=== PATIENT | female | born 1965 | race Caucasian/White ===

== ENCOUNTER 2016-10-16 20:04 | Emergency (ER) | payer OTHER ==
[~2016-10-16] VITALS: Ht 162.6 cm; Wt 78.2 kg
[~2016-10-16 20:04] MED LIST: KETO5DRO68 OP; OXYM30SP18 NS
[2016-10-16 20:13] VITALS: BP 107/5; PULSE 87; RESP 18; O2SAT 99
[2016-10-16 21:20] LABS: BASOPHILS % (AUTO) 0.9 % (0-3); EOSINOPHILS % (AUTO) 2.1 % (0-5); MONOCYTES % (AUTO) 5.8 % (4-12); Mean Corpuscular Hemoglobin 29.4 pg (27.0-35.0); Mean Corpuscular Volume 90.9 fL (81-100); NEUTROPHILS % (AUTO) 46.4 % (40-74); Platelet Count 286 bil/L (150-400)
--- NOTE | 2016-10-16 21:58 | ED.REPORT ---
HPI-Back Pain 40 and Over Date of Service Oct 16, 2016 ED Provider: Raul Martin DO The patient is a 51 year old female who presents to the ED with severe low back pain onset today. She is anxious and in distress at the ED. She jumps when her back is touched. She drove herself to the ED. She has successfully had Vicodin in the past although she lists an allergy to acetaminophen. She denies fever, chest pain, abdominal pain,and vomiting. Nursing Notes Stated Complaint: LEFT BACK PAIN Chief Complaint: Back Pain or Injury Nursing Notes Reviewed: Yes Allergies: Coded Allergies: NSAIDS (Non-Steroidal Anti-Inflamma (Verified Allergy, Severe, Rash, Itching,SOB, 10/16/16) Penicillins (Verified Allergy, Severe, Rash,Itching,SOB, 10/16/16) acetaminophen (Verified Allergy, Intermediate, eye lids swelling, 10/16/16) Scheduled Ketotifen Fumarate (Zaditor) 5 Ml Drops 1 DROP OP Q12 Scheduled PRN Oxymetazoline HCl (Nasal [place] Sinus) 30 Ml [place] 30 ML NS BID PRN PRN For Congestion General Time Seen by MD: 21:57 Chief Complaint Back pain Hx Obtained From: Patient Arrived By: Walk-in Sudden in Onset?: Yes Onset Occurred: Yesterday Symptom Duration: Since onset Quality: Painful Severity: Current: Severe Recent Healthcare: No recent doctor visit, No recent hospitalization Similar Sx Previous: No Past Medical History Past Medical History Denies Past Surgical History denies Family History Noncontributory Smoking History Unknown if Ever Smoker Social History Other Social History: Local resident Ambulatory Status Independent Review of Systems Constitutional: Denies: Fever Respiratory: Denies: Shortness of breath Cardiovascular: Denies: Chest pain GI: Denies: Abdominal pain, Vomiting Musculoskeletal: Reports: Back pain Complete sys rev & neg: except as marked. Physical Exam Physical Exam Notes: Initial Vital Signs Vital Signs (First) Date Time Temp Pulse Resp B/P Pulse Ox O2 Delivery O2 Flow Rate FiO2 10/16/16 20:13 36.1 87 18 107/5 99 Room Air Initial VS: Reviewed Head / Eyes: Atraumatic, Normocephalic, PERRL ENT: Mucous membranes moist Extremities: Vascular intact, Neuro intact, No swelling Skin: Warm, Dry General/Constitutional: Awake, Alert Distress / Hydration: Positive: Distress moderate (due to pain) Respiratory / Chest: Atraumatic, Breath sounds NL, Breath sounds = bilat Cardiovascular: Heart rate NL, Regular rhythm, Heart sounds NL Abdomen: Atraumatic, Soft, Non-tender Flank / Spine / Paraspinal: Positive: Thoracic spine tender... tender left CVA Neurologic: Oriented X3, Speech NL, No motor deficits, No sensory deficits, Reflexes equal bilat, Memory NL Interpretation & Diagnostics Lab Results Interpretation Result Diagram: 10/16/16 21010/16/16 210 Test 10/16/16 21:03 10/16/16 21:55 White Blood Count 6.7th/mm3 (3.8-10.1) Red Blood Count 4.28mil/mm3 (3.90-5.20) Hemoglobin 12.6g/dL (12.0-15.6) Hematocrit 38.9% (35.0-46.0) Mean Corpuscular Volume 90.9fL (81-100) Mean Corpuscular Hemoglobin 29.4pg (27.0-35.0) Mean Corpuscular Hemoglobin Concent 32.4% (32.0-37.0) Red Cell Distribution Width 13.1% (12.3-15.4) Platelet Count 286bil/L (150-400) Neutrophils (%) (Auto) 46.4% (40-74) Lymphocytes (%) (Auto) 44.7% (14-46) Monocytes (%) (Auto) 5.8% (4-12) Eosinophils (%) (Auto) 2.1% (0-5) Basophils (%) (Auto) 0.9% (0-3) Sodium Level 139mEq/L (134-144) Potassium Level 3.9mEq/L (3.5-5.2) Chloride Level 104mEq/L (97-108) Carbon Dioxide Level 24mmol/L (18-29) Blood Urea Nitrogen 14mg/dL (6-24) Creatinine 0.69mg/dL (0.57-1.00) Estimat Glomerular Filtration Rate 128mL/min (>59) Glucose Level 125mg/dL (60-99) Calcium Level 9.3mg/dL (8.5-10.1) Total Bilirubin 0.2mg/dL (0.0-1.2) Aspartate Amino Transf (AST/SGOT) 19U/L (0-50) Alanine Aminotransferase (ALT/SGPT) 16U/L (0-32) Alkaline Phosphatase 75U/L (25-150) Total Protein 7.1g/dL (6.4-8.4) Albumin 4.4g/dL (3.4-5.0) Hold [place] Top Tube Received (Received) Urine Color Yellow (YELLOW) Urine Appearance Clear (CLEAR,HAZY) Urine pH 6.5 (5.0-8.0) Urine Specific [place] 1.010 (1.003-1.035) Urine Protein Negativemg/dL (NEG,TRACE) Urine Glucose (UA) Negativemg/dL (NEGATIVE) Urine Ketones Negativemg/dL (NEGATIVE) Urine Occult Blood Negative (NEGATIVE) Urine Nitrite Negative (NEGATIVE) Urine Bilirubin Negative (NEGATIVE) Urine Urobilinogen Normalmg/dL (NORMAL) Urine Leukocyte Esterase Negative (NEGATIVE) Urine RBC 0-2/hpf (0-2) Urine WBC 0-5/hpf (0-5) Urine Epithelial Cells Moderate/hpf (NONE-MOD) Urine Crystals None seen (NONE SEEN) Urine Bacteria Few/hpf (NONE-FEW) Urine Hyaline Casts None/lpf (NONE) Urine Granular Casts None seen (NONE SEEN) Urine Waxy Casts None seen (NONE SEEN) Urine Red Blood Cell Casts None seen (NONE SEEN) Urine White Blood Cell Casts None seen (NONE SEEN) Urine Mucus None seen (None Seen) Urine Trichomonas None seen (NONE SEEN) Urine Yeast None (NONE SEEN) Urinalysis Comment None Urine Culture Reflexed Not indicated Re-Eval/Medical Decision Med Decision/Clinical Course CT scan shows some adenitis otherwise nothing to explain the flank pain. CBC and metabolic panel reassuring. However follow-up regarding the adenitis with her primary care. Short course of [place] dispensed for pain. Acetaminophen is listed as an allergy however she has taken Vicodin with acetaminophen in the past and this has not given her any problems. She feels comfortable taking the Vicodin. Routine opiate warnings were given. She will follow up as instructed. Counseled Regarding: Diagnosis, Lab results, Need for follow-up, When/why to return to ED Discharge & Departure Impression: Primary Impression: Low back pain Chronicity: acute Back pain laterality: left Sciatica presence: without sciatica Qualified Code: M54.5 - Low back pain Disposition: Home Discharge Condition All VS Reviewed: Yes Condition: Stable Patient Instructions: Low Back Strain (ED), Acute Low Back Pain (ED), Sciatica (ED) Additional Instructions: The CT scan shows some enlarged lymph nodes in your abdomen. Otherwise the labs and CT are reassuring. The cause of your pain is uncertain however I suspect that it is musculoskelatal in origin. Take one oxycodone every 6 hours as needed for severe pain. Call your primary care provider for a follow up and have the CT results reviewed. The enlarged lymph nodes may need follow up imaging. Call Monday to set up a follow up. Return if any problems or any new or worsening symptoms. Do not drive or drink alcohol or consume acetaminophen while taking the oxycodone. Referrals: Amos Helms DO (PCP) Louie Attestation Portion of this note were transcribed by Karon Puente. I, Dr. Martin, personally performed the history, physical exam, and medical decision-making: I reviewed and confirmed the accuracy for the information in the transcribed note. Signed by: louie Minor, 10/16/16 2300 copies to: Amos Helms Todd P DO Oct 16, 2016 21:58 Karon Puente Oct 16, 2016 22:09
[2016-10-16 22:10] LABS: APPEARANCE,URINE CLEAR (CLEAR,HAZY); COLOR,URINE YELLOW (YELLOW); OCCULT BLOOD,URINE NEGATIVE (NEGATIVE); PH,URINE 6.5 (5.0-8.0); UROBILINOGEN,URINE NORMAL (NORMAL)
[2016-10-16] MEDS ORDERED: _HYDROcodone/APAP 5-325 mg Tablet PO PRN (22:10)
--- NOTE | 2016-10-17 09:42 | DRSVH ---
PROCEDURE: CT KUB ([id number]) INDICATIONS: left flank pain TECHNIQUE: Noncontrast 5 mm thick sections acquired from the diaphragms to the symphysis. 5 mm thick coronal an d sagittal reformats were then performed. For radiation dose reduction, the following was used: aut omated exposure control, adjustment of mA and/or kV according to patient size. COMPARISON: None. FINDINGS: Image quality: Excellent. Lung bases: Lung bases are clear. Heart size is normal. Urinary system: Both kidneys are normal in size. No kidney stones. No hydronephrosis or perinephri c fat stranding. Both ureters appear non-dilated throughout their expected courses. Bladder wall th ickness is normal; no calcified bladder stones. Other solid organs: Liver is enlarged. The spleen is normal in size. Gallbladder is unremarkble. Pancreas is normal in contours. No adrenal nodules. Peritoneum and bowel: Unenhanced bowel loops demonstrate normal wall thickness and caliber. No free fluid or air. Nodes and vessels: No retroperitoneal or mesenteric adenopathy by size criteria. Aorta and inferior vena cava are normal in caliber. Abdominal wall: No ventral hernias. Pelvis: No free pelvic fluid. No inguinal hernias or adenopathy. Right ovarian cyst, possibly hemo rrhagic. Bones: No suspicious bony lesions. No vertebral body compression fractures. IMPRESSION: 1. No acute abdominal or pelvic process. Dictated by: Jessica Hamilton M.D. on 10/17/2016 at 9:31 Approved by: Jessica Hamilton M.D. on 10/17/2016 at 9:40
== END 2016-10-17 00:02 | disposition home or self-care (01) ==
LOC: SED 20:04
DX: M54.5 Low back pain (principal); Z88.0 Allergy status to penicillin; Z88.6 Allergy status to analgesic agent; Z88.8 Allergy status to other drugs, medicaments and biological substances